=== PATIENT | female | born 1985 | race Caucasian/White ===

== ENCOUNTER 2017-08-22 12:17 | Emergency (ER) | payer OTHER ==
[~2017-08-22] VITALS: Ht 160 cm; Wt 69.2 kg
[2017-08-22 13:04] LABS: APPEARANCE SL.HAZY ((CLEAR)); BILIRUBIN NEGATIVE; BLOOD NEGATIVE; COLOR YELLOW ((YELLOW)); GLUCOSE (STRIP) NEGATIVE; KETONES NEGATIVE; LEUKOCYTES TRACE; NITRITE NEGATIVE; PROTEIN (STRIP) 30; SPECIFIC GRAVITY 1.024 (1.000-1.030)
[2017-08-22 13:09] LABS: BACTERIA 1+ /HPF; EPITHELIAL CELLS 2+ /HPF; HYALINE CASTS 0-5 /LPF; MUCUS 1+ /LPF; RED BLOOD CELLS 0-5 /HPF (0-5); UCUL ADDED? YES
[2017-08-22 13:09] LABS: HEMATOCRIT 39.3 % (36.0-46.0); HEMOGLOBIN 12.9 G/DL (11.9-15.5); MCH 29.7 PG (29.0-34.0); MCHC 32.8 G/DL (30.0-36.0); MCV 90.3 FL (83-99); PLATELET COUNT 241 K/uL (156-360); RBC DIS.WIDTH-CV 14.4 % (11.8-14.6); RED BLOOD COUNT 4.35 M/uL (3.80-5.20); WHITE BLOOD COUNT 4.1 K/uL (4.1-10.2)
[2017-08-22 13:25] LABS: CHLORIDE 107 mEq/L (99-109); SODIUM 140 mEq/L (136-147)
[2017-08-22 13:27] LABS: GLUCOSE 87 mg/dL (70-99)
[2017-08-22 13:31] LABS: CREATININE 0.7 mg/dL (0.6-1.3); UREA NITROGEN (BUN) 13 mg/dL (9-23)
[2017-08-22 13:32] LABS: GFR ESTIMATE (CALCULATED) > 59 mL/min/
[2017-08-22] MEDS ORDERED: LITHIUM CARBON300 M2 PO (14:48)
[2017-08-22] MEDS ORDERED: IMODIUM A-D2 M2 PO (16:09)
[2017-08-22] MEDS ORDERED: ZOFRAN4 MG PO (16:09)
[2017-08-22 16:47] VITALS: BP 98/64
== END 2017-08-22 16:47 | disposition home or self-care (01) ==
LOC: EME 12:17
DX: R11.2 Nausea with vomiting, unspecified (principal); R19.7 Diarrhea, unspecified; F17.200 Nicotine dependence, unspecified, uncomplicated
CPT/HCPCS: 80048; 81003; 85027; 87077; 87086; 87186; 87502; 99281; 99284